=== PATIENT | female | born 1955 | race Caucasian/White ===

== ENCOUNTER 2018-06-06 10:51 | Day surgery (SDC) | payer BC ==
[2018-06-06] MEDS ORDERED: LIDOCAINE 2% MDV (20MG/ML) 20ML VIAL IV ONE ×2 (10:52)
[2018-06-06] MEDS ORDERED: PROPOFOL 10 MG/ML VIAL IV ONE ×2 (10:52)
--- NOTE | 2018-06-07 09:00 | Operative Note ---
DATE OF SURGERY: 06/06/18 OPERATION: COLONOSCOPY with cold snare polypectomy x2. PREOPERATIVE DIAGNOSIS: Colon cancer screening, average risk. POSTOPERATIVE DIAGNOSIS: Sigmoid polyps. PREPARATION QUALITY: Excellent. ESTIMATED BLOOD LOSS: Minimum. SPECIMENS: Sigmoid polyps. COMPLICATIONS: None apparent. PROCEDURE: After informed consent was obtained from the patient, she was placed in the left lateral decubitus position in the endoscopy suite, sedated and monitored by the department of anesthesia. Digital rectal examination was unremarkable. A well-lubricated [id number] colonoscope was inserted into the rectum and advanced to the cecum. The cecum and cecal bulb were noted by the ileocecal valve and appendiceal orifice. Preparation quality was good to excellent. The cecum, ascending colon, transverse colon, and descending colon were free of inflammatory changes, mass lesions, or polyps. There were 2 diminutive sessile polyps noted in the sigmoid colon each removed with a cold snare and retrieved. Minimal bleeding was noted at the site. The rectum was unremarkable in forward and in J-turn views. The endoscope was straightened, the rectal ampulla deflated, and the endoscope was removed. RECOMMENDATIONS: I would suggest the patient resume her medications and diet. She will require repeat exam in 5-10 years pending tissue histology. As always, thank you for allowing me to participate in the healthcare of your patients. CC: DO LEON [place]
== END 2018-06-06 11:54 | disposition home or self-care (01) ==
LOC: HOP 10:51
PROVIDERS: ATTEND Internal Medicine Gastroenterology
DX: Z12.11 Encounter for screening for malignant neoplasm of colon (principal); D12.5 Benign neoplasm of sigmoid colon; E78.00 Pure hypercholesterolemia, unspecified; I73.00 Raynaud's syndrome without gangrene

== ENCOUNTER 2019-02-28 07:31 | Day surgery (SDC) | payer BC ==
[2019-02-28] MEDS ORDERED: LIDOCAINE 2% MDV (20MG/ML) 20ML VIAL IV ONE (07:32)
[2019-02-28] MEDS ORDERED: PROPOFOL 10 MG/ML VIAL IV ONE (07:32)
[2019-02-28] MEDS ORDERED: FENTANYL PF 100MCG/2ML VIAL IV ONE (07:32)
--- NOTE | 2019-03-04 09:00 | Operative Note ---
SURGEON: Emilee Love MD OPERATION: ESOPHAGOGASTRODUODENOSCOPY. INDICATIONS: This is a 63-year-old female with history of gastroesophageal reflux disease and Rollins's esophagus who presented for esophagogastroduodenoscopy. POSTOPERATIVE DIAGNOSES: 1. Mild distal esophagitis, concern with Rollins's esophagus. 2. Diffuse gastritis. 3. Normal duodenum. ANESTHESIA: Sedation is per Anesthesia. Pulse oximetry was monitored throughout the procedure to maintain O2 saturation of 90% or greater. Supplemental oxygen was administered via nasal cannula. Cardiac and vital signs were monitored throughout the duration of the procedure, and they were stable. The procedure of esophagogastroduodenoscopy and risks and benefits of the procedure, including the risk of bleeding and perforation, among others, were explained to the patient who voiced understanding and agreed to have the procedure done. Physical examination was performed, and the patient was found stable for sedation. PROCEDURE: The patient was placed in the left lateral position. Sedation was initiated. A plastic bite block was inserted into the oral cavity. The Olympus [id number] gastroscope was introduced into the oral cavity and advanced to the proximal esophagus without difficulty. The esophageal mucosa was carefully examined upon introduction of the gastroscope. The proximal and mid esophageal mucosa appeared normal. In the distal esophagus there was mild Z line irregularity but no ulcerations and no strictures noted. The gastroscope was then advanced into the stomach, and surveillance of the stomach revealed diffuse erythema along the gastric fundus and body with no ulcerations noted. The gastroscope was then advanced to the descending duodenum without difficulty. The duodenal bulb and descending duodenum appeared normal. The gastroscope was then withdrawn into the stomach and retroflexion was performed. There were no other lesions noted. The gastroscope was then withdrawn while carefully examining the gastric and esophageal mucosa. No other lesions noted. Multiple duodenal, gastric, and distal esophageal biopsies were obtained. Retroflexion was normal. The gastroscope was then withdrawn while carefully examining the gastric and esophageal mucosa. No other lesions noted. She tolerated the procedure well without any immediate complications. She remained with stable vital signs and was transferred to the recovery room. RECOMMENDATIONS: 1. The patient should continue on her proton pump inhibitors. 2. We will obtain abdominal HIDA scan to exclude any gallbladder disease given her recent abdominal pain. Thank you for allowing me to participate in the care of your patient. LEON
== END 2019-02-28 09:12 | disposition home or self-care (01) ==
LOC: HOP 07:31
PROVIDERS: ATTEND Internal Medicine Gastroenterology
DX: Z87.19 Personal history of other diseases of the digestive system (principal); K22.70 Barrett's esophagus without dysplasia; K31.89 Other diseases of stomach and duodenum; K29.70 Gastritis, unspecified, without bleeding; E78.00 Pure hypercholesterolemia, unspecified